=== PATIENT | male | born 1980 | race African-American/Black ===

== ENCOUNTER 2022-08-15 17:30 | Emergency (ER) | payer SELFPAY ==
[2022-08-15] MEDS ORDERED: Ibuprofen 400 MG TAB ONE (18:40)
== END 2022-08-15 20:01 | disposition home or self-care (01) ==
LOC: MADERS 17:30
DX: S93.402A Sprain of unspecified ligament of left ankle, initial encounter (principal); W20.8XXA Other cause of strike by thrown, projected or falling object, initial encounter

== ENCOUNTER 2022-12-26 04:56 | Emergency (ER) | payer SELFPAY ==
[2022-12-26] MEDS ORDERED: Sodium Chloride 0.9% 1,000 ML ONE (05:31)
[2022-12-26] MEDS ORDERED: Ketorolac Tromethamine 30 MG/ML VIAL ONE (05:32)
[2022-12-26 05:35] LABS: Bilirubin Small (Negative); Blood, Urine Negative (Negative); Clarity Clear (Clear); Glucose, Urine (Dipstick) Negative (Negative); Ketone, Urine 15 mg/dL (Negative); Leukocyte Negative (Negative); Nitrite Negative (Negative); Protein, Urine (Dipstick) 30 mg/dL (Neg-Trace); pH, Urine 5.5 (5.0-9.0)
[2022-12-26 05:36] LABS: Specific Gravity, Urine 1.032 (1.002-1.036)
[2022-12-26 05:43] LABS: Bacteria/HPF None Seen HPF (None Seen); Mucous/LPF 3+ LPF (<2+); RBC/HPF None Seen HPF (0-3); Transitional Epithelial 0-3 HPF (None Seen)
[2022-12-26 05:51] LABS: Band 7 % (5-11); Hemoglobin 14.2 g/dL (14.0-18.0); Lymphocytes 7 % (21-51); MDiff Complete? YES; Mean Corpuscular HGB CONC 33.7 g/dL (32.0-36.0); Mean Corpuscular Hemoglobin 26.5 pg (27.0-31.0); Mean Corpuscular Volume 78.7 fl (78.0-98.0); Mean Platelet Volume 6.6 fL (7.4-10.4); Monocytes 7 % (0-10); Neutrophil 79 % (42-75); Platelet Count 263 10x3/uL (130-400); RBC Distribution Width 11.8 % (11.5-14.5); RBC Morphology Normal; Red Blood Cell (RBC) Count 5.36 mill/uL (4.70-6.10); White Blood Cell (WBC) Count 26.8 10x3/uL (4.8-10.8)
[2022-12-26 05:52] LABS: Anion Gap 17 mmol/L (10-20); BUN (Urea Nitrogen) 17 mg/dL (8.9-20.6); Calc. Creatinine Clearance 0 mL/min (70-130); Calcium 9.4 mg/dL (7.8-10.44); Carbon Dioxide 26 mmol/L (22-29); Chloride 99 mmol/L (98-107); Estimated GFR 80; Glucose 99 mg/dL (70-105); Potassium 3.6 mmol/L (3.5-5.1); Sodium 138 mmol/L (136-145)
[2022-12-26] MEDS ORDERED: Iopamidol 370 76% 100 ML VIAL ONE (08:42)
== END 2022-12-26 08:29 | disposition home or self-care (01) ==
LOC: MADERS 04:56
DX: D72.829 Elevated white blood cell count, unspecified (principal)
CPT/HCPCS: 74177; 80048; 81003; 81015; 85025; 96374; J1885; J7050; Q9967